=== PATIENT | male | born 1990 | race Caucasian/White ===

== ENCOUNTER 2021-09-12 02:13 | Emergency (ER) | payer OTHER, SELFPAY ==
[2021-09-12 02:26] VITALS: BP 168/105; PULSE 78; RESP 16; TEMP 36.9; O2SAT 99; BMI 26.6
[2021-09-12 03:14] LABS: Appearance Urine Clear (Clear); Bilirubin Urine Negative (Negative); Blood Urine Negative (Negative); Color Urine Yellow (Yellow); Glucose Urine Negative (Negative); Ketones Urine Negative (Negative); Leukocyte Esterase Urine Negative (Negative); Nitrite Urine Negative (Negative); Protein Urine Negative (Negative); Urobilinogen Urine 0.2 (0.2-1.0)
--- NOTE | 2021-09-12 04:01 | ED.MALEGU ---
HPI - Male Genitourinary General Chief complaint: Flank Pain Stated complaint: Pain lower RT side Time Seen by Provider: 09/12/21 02:15 History of Present Illness HPI Narrative: 31-year-old young man presenting with three days of deep ache right mid abdomen he gestures down toward the right side then inward and downward toward the groin. Starts at the right flank. Just wants to be sure he does not have a kidney infection. History of nephrolithiasis and notes that he does have residual stone burden. No dysuria or hematuria. No fever. No trauma. Related Data Home Medications Medication Instructions Recorded Confirmed losartan 25 mg tablet 50 mg PO DAILY 09/12/21 09/12/21 sertraline 25 mg tablet (Zoloft) 50 mg PO DAILY 09/12/21 09/12/21 Allergies Allergy/AdvReac Type Severity Reaction Status Date / Time No Known Drug Allergies Allergy Verified 09/12/21 02:29 Review of Systems Status of ROS: Reports: 6 or more systems reviewed and unremarkable except as noted in History and below [facility] Medical History Anxiety Hypertension Surgical History No significant past surgical history Social History Smoking Status: Never smoker Do you use any of these nicotine containing products: None How often do you have a drink containing alcohol: never How often do you have six or more drinks on one occasion: Never AUDIT-C Alcohol total score: 0 Non-prescribed substance use: denies use Exam Narrative: Exam Narrative: Pleasant. NAD. Hand at right side at times. Skin is warm and dry without rash. Is breathing easily. Lungs appear to be clear Abdomen is soft. Not tender Cardiovascular regular rate and rhythm Moving all extremities without difficulty. Well perfused peripherally. Const: Vital Signs, click to edit/add: Vital Signs - 24 hr 09/12/21 02:26 09/12/21 04:16 09/12/21 04:24 Temperature 98.4 F 98.4 F 98.4 F Pulse Rate 84 Pulse Rate [Right Pulse Oximeter] 78 79 Respiratory Rate 16 16 16 Blood Pressure 159/95 H Blood Pressure [Ri ght Upper Arm] 168/105 H 145/95 H Pulse Oximetry 99 99 Documenting provider has reviewed patient's vital signs: yes Course Course Hospital Course: Exam and interview as above. Urinalysis collected Vital Signs Vital signs: Initial Vital Signs Temperature 98.4 F 09/12/21 02:26 Temperature Source Temporal Artery Scan 09/12/21 02:26 Pulse Rate 78 09/12/21 02:26 Respiratory Rate 16 09/12/21 02:26 Blood Pressure 168/105 H 09/12/21 02:26 Blood Pressure Mean 126 09/12/21 02:26 Blood Pressure Position Sitting 09/12/21 02:26 Pulse Oximetry 99 09/12/21 02:26 Oxygen Delivery Method 09/12/21 02:26 Vital Signs Temperature 98.4 F 09/12/21 02:26 Pulse Rate 78 09/12/21 02:26 Respiratory Rate 16 09/12/21 02:26 Blood Pressure 168/105 H 09/12/21 02:26 Pulse Oximetry 99 09/12/21 02:26 Temperature 98.4 F 09/12/21 04:24 Pulse Rate 84 09/12/21 04:24 Respiratory Rate 16 09/12/21 04:24 Blood Pressure 159/95 H 09/12/21 04:24 Pulse Oximetry 99 09/12/21 04:16 MDM - Male Genitourinary MDM Narrative Medical decision making narrative: History of small stone burden. Urinalysis is clear. Doubtful pyelonephritis per concern. Deferring imaging at this time. Work note Medical Records Attestation: I reviewed the patient's medical records. Lab Data Attestation: I reviewed the patient's lab results. Labs: Lab Results 09/12/21 Range/Units 02:50 Urine Color Yellow (Yellow) Urine Appearance Clear (Clear) Urine pH 6.0 (5.0-8.5) Ur Specific [place] 1.020 (1.000-1.030) Urine Protein Negative (Negative) Urine Glucose (UA) Negative (Negative) Urine Ketones Negative (Negative) Urine Blood Negative (Negative) Urine Nitrite Negative (Negative) Urine Bilirubin Negative (Negative) Urine Urobilinogen 0.2 (0.2-1.0) Ur Leukocyte Esterase Negative (Negative) Discharge Plan Discharge Clinical Impression: Acute flank pain Patient Disposition: Home, Self-Care Condition: Stable Additional Instructions: No. It does not appear that you have a urinary tract infection of any sort. It is possible that you do have a kidney stone in the ureter. I would be re-evaluated for marked increase in persistent pain, repeated vomiting, fever, pain lasting another 3 days. Can take up to 800 mg of ibuprofen per dose. Prescriptions: No Action losartan 25 mg tablet 50 mg PO DAILY 0RF sertraline [Zoloft] 25 mg tablet 50 mg PO DAILY 0RF Follow Up/Referrals: Nola Link PA-C [Primary Care Provider] - Stand Alone Forms: [employer] Info Instructions
[2021-09-12 04:16] VITALS: BP 145/95; PULSE 79; RESP 16; TEMP 36.9; O2SAT 99
[2021-09-12 04:24] VITALS: BP 159/95; PULSE 84; RESP 16; TEMP 36.9
== END 2021-09-12 04:25 | disposition home or self-care (01) ==
PROVIDERS: Emergency Provider Family Medicine; PCP Physician Assistant Medical
DX: R10.9 Unspecified abdominal pain (principal)
CPT/HCPCS: 81003; 99283; 99284